=== PATIENT | male | born 1965 | race Caucasian/White ===

== ENCOUNTER → 2021-06-07 | Outpatient (CLI) | payer BC ==
[~2021-06-07] MED LIST: AMLO1TAB25; OMEP40CA5
== END ==
LOC: M LABSMTC 09:09
PROVIDERS: ATTEND Anesthesiology
DX: Z01.812 Encounter for preprocedural laboratory examination (principal); Z20.822 Contact with and (suspected) exposure to COVID-19

== ENCOUNTER 2021-06-12 08:20 | Day surgery (SDC) | payer BC ==
[~2021-06-12] VITALS: Ht 182.9 cm; Wt 82.1 kg
[~2021-06-12 08:20] MED LIST changes: +NS 1,000 ML IV ONE; +SIMETHICONE 40MG/0.6ML DROPS 30ML As Ordered ONE
[2021-06-12] MEDS ORDERED: propofoL 200 MG/20 ML VIAL As Ordered ONE ×2 (09:33→09:36)
[2021-06-12] MEDS ORDERED: LIDOCAINE 2% INJ 100 MG/5 ML SYRINGE As Ordered ONE (09:38)
[2021-06-12 10:00] VITALS: BP 126/88
== END 2021-06-12 10:05 | disposition home or self-care (01) ==
LOC: M OPP 08:20
PROVIDERS: ATTEND Surgery
DX: Z12.11 Encounter for screening for malignant neoplasm of colon (principal); Z86.010 Personal history of colon polyps; K57.30 Diverticulosis of large intestine without perforation or abscess without bleeding; Z79.899 Other long term (current) drug therapy; Z87.891 Personal history of nicotine dependence